=== PATIENT | female | born 1945 | race Caucasian/White ===

== ENCOUNTER → 2017-07-11 | Outpatient (CLI) | payer MEDICARE ==
[~2017-07-11] MED LIST: ASPIR 8181 MG PO; ASPIRIN325 PO; COREG6.25 MG PO; FISH OIL 1,2001 EAC4 PO; INVOKANA300 MG PO; LANTUS SUBQ; METFORMIN HCL500 MG PO; MOBIC15 MG PO; NOVOLOG100 UNIT/1 SUBQ; OMEPRAZOLE40 MG PO; PRILOSEC 20 MG20 MG PO; PRILOSEC40 MG PO; ZESTORETIC 20-1 EAC3 PO; ZOCOR40 MG PO; ZOLOFT25 MG PO
== END ==
LOC: M.MRI 16:04
DX: M51.16 Intervertebral disc disorders with radiculopathy, lumbar region (principal); M12.88 Other specific arthropathies, not elsewhere classified, other specified site; M25.78 Osteophyte, vertebrae; G89.29 Other chronic pain

== ENCOUNTER 2017-08-11 15:12 | Inpatient (IN) | payer MEDICARE ==
[~2017-08-11] VITALS: Ht 154.9 cm; Wt 78.0 kg
[~2017-08-11 15:12] MED LIST changes: -ASPIR 8181 MG PO; -COREG6.25 MG PO; -INVOKANA300 MG PO; -METFORMIN HCL500 MG PO; -MOBIC15 MG PO; -OMEPRAZOLE40 MG PO
[2017-08-11 15:17] VITALS: BP 114/72
[2017-08-11] MEDS ORDERED: OMEPRAZOLE40 MG PO (15:30)
[2017-08-11] MEDS ORDERED: ASPIR 8181 MG PO (15:30)
[2017-08-11] MEDS ORDERED: METFORMIN HCL500 MG PO (15:32)
[2017-08-11] MEDS ORDERED: INVOKANA300 MG PO (15:32)
[2017-08-11] MEDS ORDERED: COREG6.25 MG PO (15:33)
[2017-08-11] MEDS ORDERED: MOBIC15 MG PO (15:33)
[2017-08-11 15:59] LABS: ABSOLUTE LYMPHOCYTES 2.6 thou/uL (0.8-5.3); HEMOGLOBIN 14.8 gm/dL (12.0-15.0); PLATELET COUNT* 283 thou/uL (150-400); RDW-CV 14.7 % (10.5-14.5)
[2017-08-11 16:01] LABS: ABSOLUTE EOSINOPHILS 0.1 thou/uL (0.0-0.7); ABSOLUTE NEUTROPHILS 5.6 thou/uL (1.6-8.1); BASOPHILS 0.4 %; EOSINOPHILS 0.8 %; HEMATOCRIT 44.3 % (37.0-47.0); LYMPHOCYTES 27.7 %; MCH 30.9 pg (26.0-34.0); MCHC 33.3 g/dL (28.0-37.0); MCV 92.8 fL (80.0-100.0); MONOCYTES 10.5 %; NUCLEATED RBCS 0 /100WBC; POLYS 60.6 %; RBC 4.78 mil/uL (4.20-5.00); WBC 9.3 thou/uL (4.0-11.0)
[2017-08-11 16:09] LABS: APTT 25.1 Seconds (25.0-31.3)
[2017-08-11 16:12] LABS: ANION GAP 9 mmol/L (7-16); BUN 23 mg/dL (7-18); CALCIUM 9.2 mg/dL (8.5-10.1); CHLORIDE 103 mmol/L (98-107); CO2 26 mmol/L (21-32); CREATININE 0.7 mg/dL (0.6-1.3); GLUCOSE 189 mg/dL (70-99); POTASSIUM 4.2 mmol/L (3.5-5.1); SODIUM 138 mmol/L (136-145)
[2017-08-11 16:17] LABS: ALBUMIN 3.7 g/dL (3.4-5.0); ALKALINE PHOSPHATASE 58 U/L (46-116); SGOT 24 U/L (15-37); SGPT 23 U/L (30-65); TOTAL BILIRUBIN 0.6 mg/dL (<0.1-1.0); TOTAL PROTEIN 7.4 g/dL (6.4-8.2); TROPONIN-I LEVEL <0.06 ng/mL (<0.06)
[2017-08-11 16:25] LABS: URINE BILIRUBIN NEGATIVE (Negative); URINE BLOOD TRACE (Negative); URINE CLARITY CLEAR; URINE COLOR YELLOW; URINE GLUCOSE-RANDOM 3+ (Negative); URINE KETONES 1+ (Negative); URINE LEUKOCYTES-REFLEX NEGATIVE (Negative); URINE NITRITE-REFLEX NEGATIVE (Negative); URINE PROTEIN NEGATIVE (Negative); URINE UROBILINOGEN 0.2 E.U./dl (0.2-1.0)
[2017-08-11 17:58] VITALS: BP 157/57
[2017-08-11 18:59] VITALS: BP 162/51
[2017-08-11 20:00] VITALS: BP 167/69
[2017-08-12] VITALS: BP 136/51
[2017-08-12 04:00] VITALS: BP 119/56
[2017-08-12 08:00] VITALS: BP 151/53
--- NOTE | 2017-08-12 10:36 | EKG ---
[place] [address] ELECTROCARDIOGRAM REPORT Name: KAYLEIGHREINALDO KAOR Room: [address] IN [facility].#: [id number] Admission: 08/11/17 Attend Phys: Zo Núñez MD Discharge: Date of : 49 Report #: [id number] THIS REPORT FOR: //name// [facility] ED Test Date: 2017-08-11 Test Time: 15:37:17 Pat Name: REINALDO VICTOR Department: Room: Gender: F Safety Companion: : 1945 Requested By: Dedra Armendariz Order Number: [id number] MD: Byron Reid Measurements Intervals [place] Rate: 50 P: 16 [place]: 150 QRS: 11 QRSD: 149 T: 77 QT: 489 QTc: 446 Interpretive Statements Sinus rhythm Left bundle branch block Compared to ECG 02/13/2013 08:03:09 Sinus bradycardia no longer present Electronically Signed On 08-12-2017 10:36:37 CDT by Byron Reid [email or web address] <ELECTRONICALLY SIGNED> By: Byron Reid MD, FACC 08/12/17 1036 1537 1537 Byron Reid MD, [facility] /EPI
[2017-08-12 11:24] VITALS: BP 152/49
[2017-08-12 16:01] VITALS: BP 152/67
--- NOTE | 2017-08-12 17:07 | 2DMMODE ---
[place] [address] 2 D/M-MODE ECHOCARDIOGRAM Name: REINALDO VICTOR Room: [facility] IN [facility]#: [id number] Admission: 08/11/17 Attend Phys: Zo Núñez, Discharge: Date of : 49 Date of Service: 08/12/17 1706 Report #: [id number] THIS REPORT FOR: //name// APPROVED REPORT Study performed: 08/12/2017 13:38:16 EXAM: Comprehensive 2D, Doppler, and color-flow Echocardiogram Patient Location: In-Patient Room #: 228 Status: routine BSA: 1.76 HR: 50 bpm BP: 119/56 mmHg Rhythm: NSR Other Information Study Quality: Good Indications CAD Dizziness 2D Dimensions LVEF(%): 57.51 (>50%) IVSd: 9.56 (7-11mm) LVOT Diam: 20.58 (18-24mm) LVDd: 50.08 mm PWd: 9.18 (7-11mm) Ascending Ao: 36.18 (22-36mm) LVDs: 34.88 (25-40mm) Aortic Root: 29.82 mm Solis's LVEF: 57.51 % Volumes Left Atrial Volume (Systole) LA ESV Index: 29.00 mL/m2 Aortic Valve AoV Peak Wilver.: 1.52 m/s AO Peak Gr.: 9.26 mmHg LVOT Max P.30 mmHg AO Mean Gr.: 5.09 mmHg LVOT Mean P.11 mmHg LVOT Max V: 1.04 m/s AO V2 VTI: 39.53 cm LVOT Mean V: 0.66 m/s RODNEY (VTI): 2.35 cm2 LVOT V1 VTI: 27.95 [place] [address] 2 D/M-MODE ECHOCARDIOGRAM Name: KAYLEIGHREINALDO Room: [address] IN .R.#: [id number] Admission: 08/11/17 Attend Phys: Zo Núñez, Discharge: Date of : 49 Date of Service: 08/12/17 1706 Report #: [id number] E/A Ratio: 1.11 MV Decel. Time: 211.34 ms MV E Max Wilver.: 0.77 m/s MV PHT: 61.29 ms MVA (PHT): 3.59 cm2 TDI E/Lateral E': 9.63 E/Medial E': 12.83 Medial E' Wilver.: 0.06 m/s Lateral E' Wilver.: 0.08 m/s Pulmonary Valve PV Peak Wilver.: 0.92 m/s PV Peak Gr.: 3.36 mmHg Tricuspid Valve TR Peak Gr.: 35.57 mmHg RVSP: 40.00 mmHg Left Ventricle The left ventricle is normal size. Paradoxical septal motion consistent with conduction abnormality. No other regional wall motion abnormalities noted. Mild concentric left ventricular hypertrophy. Left ventricular systolic function is normal. The left ventricular ejection fraction is within the normal range. LVEF is 50-55%. Grade II - pseudonormal filling dynamics. Right Ventricle The right ventricle is normal size. The right ventricular systolic function is normal. Atria The left atrium size is normal. The right atrium size is normal. Aortic Valve Aortic valve leaflets are mildly thickened. No aortic regurgitation is present. There is no aortic valvular stenosis. Mitral Valve The mitral valve is normal in structure. Trace mitral regurgitation. No evidence of mitral valve stenosis. Tricuspid Valve The tricuspid valve is normal in structure. Mild tricuspid regurgitation. The RVSP is 40-45 [place] [address] 2 D/M-MODE ECHOCARDIOGRAM Name: REINALDO VICTOR Room: [address] IN ..#: [id number] Admission: 08/11/17 Attend Phys: Zo Núñez, Discharge: Date of : 49 Date of Service: 08/12/17 1706 Report #: [id number] The pulmonary valve is normal in structure. Trace pulmonic regurgitation. Great Vessels The aortic root is normal in size. IVC is normal in size and collapses with >50% inspiration Pericardium There is no pericardial effusion. <Conclusion> LVEF is 50-55%. Paradoxical septal motion consistent with conduction abnormality. There is no aortic valvular stenosis. No aortic regurgitation is present. Trace mitral regurgitation. Grade II - pseudonormal filling dynamics. <ELECTRONICALLY SIGNED> By: Byron Reid MD, FACC 08/12/171705 05 05 Byron Reid MD, FACC /INF
[2017-08-12 20:00] VITALS: BP 138/56
[2017-08-13] VITALS: BP 130/68
[2017-08-13 04:00] VITALS: BP 130/62
[2017-08-13 08:26] VITALS: BP 162/61
[2017-08-13 12:10] VITALS: BP 155/61
[2017-08-13 13:01] VITALS: BP 155/61
--- NOTE | 2017-08-15 08:15 | CON ---
[address] [address] CONSULTATION Name: REINALDO VICTOR Room: [address] IN M.R.#: [id number] Admission: 08/11/17 Attend Phys: Zo Núñez MD Discharge: 08/13/17 Date of : 49 Report #: [id number] THIS REPORT FOR: //name// CC: JACQUELIN Núñez Physician staff DATE OF SERVICE: 08/12/2017 HISTORY OF PRESENT ILLNESS: This is a 72-year-old female patient who was evaluated by me for dizziness. The patient indicates that she woke up with the dizziness yesterday. It started spontaneously without any trauma. She does feel more dizzy when she tries to sit up, but she has some dizziness all along. She did not have any other associated headache or any other associated neurological symptoms with it. She had a similar episode about 10 years ago. She was seen in the Emergency Room and was sent home at that time. She saw an ENT physician who did some ENT maneuver, and she became better. REVIEW OF SYSTEMS: A 14-point review of system was carried out. She said she is a diabetic as well as hypertensive. She had this dizziness in the past, and she had dizziness this time. She does have a history of sleep apnea. She had open heart surgery in the past. She had a lumpectomy and knee surgery. She otherwise denies any new eye, cardiac, respiratory, GI, , musculoskeletal, constitutional, dermatological, hematological, psychiatric, throat or allergic symptom associated with present symptomatology. PAST MEDICAL HISTORY: Positive for dizziness like this. FAMILY HISTORY: Negative for any early age stroke. SOCIAL HISTORY: She drinks alcohol on special occasions, but does not smoke. PHYSICAL EXAMINATION: Indicates she is alert, responsive, able to follow simple and complex command. Her speech, concentration, fund of knowledge and memory are at her baseline. Cranial nerve examination 2-12 looks unremarkable. She has symmetrical strength, sensation, reflexes and tones in all 4 extremities. She has no papilledema. There is no carotid bruit. There is no cerebellar sign. She is moderately built individual who does not have any dysmorphic features of eyes, ears and face. Her visions and hearing look adequate. She has no thyroid mass. Her pulses are palpable. She has no edema, cyanosis or jaundice. Cardiac examination is unremarkable. No respiratory difficulty or rhonchi was noticed on either side. Blood pressure is 119/56, respirations 17, pulse is 47, temperature is 97.7. Her blood pressure has fluctuated some. LABORATORY DATA: Her white count [place] [address] CONSULTATION Name: REINALDO VICTOR Room: [address] IN M.R.#: [id number] Admission: 08/11/17 Attend Phys: Zo Núñez MD Discharge: 08/13/17 Date of : 49 Report #: [id number] IMPRESSION: It is unlikely that there is any neurological etiology for the patient's symptoms. I will suggest working up the systemic etiology, especially ENT pathology and cardiac pathology because of her intermittently low heart rate and somewhat low blood pressure. Neurological workup is already ordered, and I will review it once it is done, especially MRI and MRA. RECOMMENDATIONS: 1. MRI. 2. MRA. 3. We will review once that workup is complete. 4. The more likely cause for this patient's symptom is systemic, and I will suggest working her up in that regard, and I will defer that to yourself. Thank you very much for this referral and if you have any questions, please feel free to contact me. <ELECTRONICALLY SIGNED> By: Armando Xiong MD 08/15/17 0815 1058 [id number] Xiong MD /nt
== END 2017-08-13 13:50 | disposition home or self-care (01) | DRG 149 ==
LOC: M.ERS 15:12 → M.TBA-ER 16:51 → M.2W 16:51
PROVIDERS: Physician Assistant; ADMIT Internal Medicine
DX: H81.10 Benign paroxysmal vertigo, unspecified ear (principal); I25.10 Atherosclerotic heart disease of native coronary artery without angina pectoris; I10 Essential (primary) hypertension; E11.9 Type 2 diabetes mellitus without complications; Z79.82 Long term (current) use of aspirin; Z79.899 Other long term (current) drug therapy; Z91.041 Radiographic dye allergy status; Z90.49 Acquired absence of other specified parts of digestive tract; Z98.890 Other specified postprocedural states; Z79.4 Long term (current) use of insulin

== ENCOUNTER 2019-01-15 16:27 | Emergency (ER) | payer MEDICARE ==
[~2019-01-15] VITALS: Ht 154.9 cm; Wt 78.9 kg
[~2019-01-15 16:27] MED LIST changes: +ASPIR 8181 MG PO; +COREG6.25 MG PO; +INVOKANA300 MG PO; +METFORMIN HCL500 MG PO; +MOBIC15 MG PO; +OMEPRAZOLE40 MG PO
[2019-01-15 19:18] VITALS: BP 138/60
== END 2019-01-15 19:18 | disposition home or self-care (01) ==
LOC: M.ERS 16:27
DX: S63.8X2A Sprain of other part of left wrist and hand, initial encounter (principal); S83.8X2A Sprain of other specified parts of left knee, initial encounter; S93.502A Unspecified sprain of left great toe, initial encounter; S93.501A Unspecified sprain of right great toe, initial encounter; G47.30 Sleep apnea, unspecified; Z90.49 Acquired absence of other specified parts of digestive tract; Z91.041 Radiographic dye allergy status; W01.0XXA Fall on same level from slipping, tripping and stumbling without subsequent striking against object, initial encounter; Y93.89 Activity, other specified; Y92.89 Other specified places as the place of occurrence of the external cause; Y99.8 Other external cause status

== ENCOUNTER → 2019-02-04 | Outpatient (CLI) | payer MEDICARE ==
[~2019-02-04] VITALS: Ht 154.9 cm; Wt 79.8 kg
[~2019-02-04] MED LIST changes: +LIPITOR40 MG PO
[2019-02-04 09:16] LABS: ABSOLUTE EOSINOPHILS 0.2 thou/uL (0.0-0.7); ABSOLUTE LYMPHOCYTES 3.2 thou/uL (0.8-5.3); ABSOLUTE MONOCYTES 0.8 thou/uL (0.0-1.2); ABSOLUTE NEUTROPHILS 2.3 thou/uL (1.6-8.1); BASOPHILS 0.7 %; EOSINOPHILS 2.9 %; HEMATOCRIT 40.1 % (37.0-47.0); HEMOGLOBIN 13.6 gm/dL (12.0-15.0); LYMPHOCYTES 48.8 %; MCH 31.2 pg (26.0-34.0); MCHC 33.9 g/dL (28.0-37.0); MONOCYTES 12.4 %; MPV 8.4 fl. (7.2-11.1); NUCLEATED RBCS 0 /100WBC; PLATELET COUNT* 231 thou/uL (150-400); POLYS 35.2 %; RBC 4.36 mil/uL (4.20-5.00); RDW-CV 13.9 % (10.5-14.5); WBC 6.5 thou/uL (4.0-11.0)
[2019-02-04 09:25] LABS: PROTIME 9.8 Seconds (9.20-11.50)
[2019-02-04 09:29] LABS: ALBUMIN 3.5 g/dL (3.4-5.0); CALCIUM 8.9 mg/dL (8.5-10.1); CREATININE 0.9 mg/dL (0.6-1.3); POTASSIUM 3.7 mmol/L (3.5-5.1); TOTAL BILIRUBIN 0.4 mg/dL (<0.1-1.0)
[2019-02-04 10:31] LABS: ESR (SEDRATE) 23 mm/hr (0-30)
--- NOTE | 2019-02-04 15:17 | EKG ---
[place] [address] ELECTROCARDIOGRAM REPORT Name: REINALDO VICTOR Room: [facility]#: [id number] Admission: Attend Phys: Jani Romero DO Discharge: Date of : 49 Report #: [id number] THIS REPORT FOR: //name// [facility] Test Date: 2019-02-04 Test Time: 09:31:46 Pat Name: REINALDO VICTOR Department: Room: Gender: F Managing Jeweler: : 1945 Requested By: Jani Romero Order Number: [id number] Tana MD: Jani Rodríguez Measurements Intervals [place] Rate: 52 P: 52 SD: 190 QRS: 62 QRSD: 153 T: 185 QT: 510 QTc: 475 Interpretive Statements Sinus bradycardia Left bundle branch block Compared to ECG 08/11/2017 15:37:17 No significant changes Electronically Signed On 02-04-2019 15:16:59 [employer]PER[employer] by Jani Rodríguez [email or web address] <ELECTRONICALLY SIGNED> By: Jani Rodríguez MD, [facility] 02/04/19 1516 0931 0931 Jani Rodríguez MD, FACC /EPI
[2019-02-05 02:10] LABS: GLYCOHEMOGLOBIN (HGB A1C) 8.5 % (4.8-5.6)
== END ==
LOC: M.PRE → M.LAB 08:00 → M.PRE 02-15 06:15 → EDSTATUS 02-15 06:53 → M.PRE 02-15 07:52
PROVIDERS: Orthopaedic Surgery
DX: M17.12 Unilateral primary osteoarthritis, left knee (principal); Z96.651 Presence of right artificial knee joint; R00.1 Bradycardia, unspecified; I44.7 Left bundle-branch block, unspecified; R79.89 Other specified abnormal findings of blood chemistry; M17.11 Unilateral primary osteoarthritis, right knee

== ENCOUNTER 2019-11-12 20:11 | Emergency (ER) | payer MEDICARE ==
[~2019-11-12] VITALS: Ht 154.9 cm; Wt 77.6 kg
[2019-11-12] MEDS ORDERED: FOSAMAX 70 MG T70 MG PO (20:34)
[2019-11-12] MEDS ORDERED: MELOXICAM7.5 MG PO (20:34)
[2019-11-12] MEDS ORDERED: FISH OIL 1,0001 EAC9 PO (20:35)
[2019-11-12] MEDS ORDERED: DIAZEPAM2 MG PO (21:54)
[2019-11-12] MEDS ORDERED: LORCET 5-325 M1 EACH PO (21:54)
[2019-11-12 22:09] VITALS: BP 138/56
== END 2019-11-12 22:12 | disposition home or self-care (01) ==
LOC: M.ERS 20:11
DX: M25.511 Pain in right shoulder (principal); M79.18 Myalgia, other site; E11.9 Type 2 diabetes mellitus without complications; G47.30 Sleep apnea, unspecified; Z91.041 Radiographic dye allergy status; Z79.4 Long term (current) use of insulin